=== PATIENT | male | born 1980 | race Caucasian/White ===

== ENCOUNTER 2025-04-15 16:52 | Observation (INO) | payer OTHER, SELFPAY ==
[2025-04-15] VITALS (16 sets, daily range): BP systolic 101–183; BP diastolic 68–119; BMI 35.7
[2025-04-15 10:09] LABS: % Eosinophils 2.6 % (0-6); % Immature Granulocytes 1.4 % (0-0.5); % Lymphocytes 27.7 % (20.5-51.1); % Monocytes 7.3 % (1.7-9.3); Absolute Basophils 0.1 10^3/uL (0-0.2); Absolute Eosinophils 0.2 10^3/uL (0-0.7); Absolute Immature Granulocytes 0.1 10^3/uL (0-0.05); Absolute Lymphocytes 1.6 10^3/uL (1.2-3.4); Absolute Monocytes 0.4 10^3/uL (0.1-0.6); Absolute Neutrophils 3.5 10^3/uL (1.4-6.5); Hematocrit 45.3 % (39.0-52.0); Hemoglobin 16.4 g/dL (13.0-18.0); Mean Corp Hgb Conc. 36.2 g/dL (33.0-37.0); Mean Corpuscular Hgb 30.1 pg (27.0-31.0); Mean Corpuscular Volume 83.3 fL (80.0-94.0); Nucleated Red Blood Cells % 0 % (-); Red Blood Cell Count 5.44 10^6/uL (4.70-6.10); Red Cell Dist. Width 12.8 % (11.5-14.5); White Blood Cell Count 5.8 10^3/uL (4.8-10.8)
[2025-04-15 10:15] LABS: ALT (SGPT) 28 U/L (0-50); AST (SGOT) 21 U/L (17-59); Albumin 4.7 g/dl (3.5-5.0); Alkaline Phosphatase 42 U/L (38-126); Blood Urea Nitrogen 15 mg/dl (9-20); Calcium 9.5 mg/dl (8.4-10.2); Carbon Dioxide 24 mmol/L (22-30); Chloride 109 mmol/L (98-107); Glucose 110 mg/dl (70-99); Potassium 4.6 mmol/L (3.5-5.1); Sodium 141 mmol/L (135-145); Total Protein 7.4 g/dl (6.3-8.2); eGFR > 60.00
[2025-04-15 10:27] LABS: Troponin I < 0.012 ng/ml
[2025-04-15 10:38] LABS: Platelet Count 154 10^3/uL (130-400)
--- NOTE | 2025-04-15 11:36 | ED.GENMED ---
History of Present Illness
<STACI Jimenez - Last Filed: 04/15/25 14:39>
General
Chief Complaint: Chest Pain
Source: patient
Exam Limitations: none
Time Seen by Provider: 04/15/25 11:09
Nursing documentation reviewed up to this point in time: agreed with
History of Present Illness
History of Present Illness:
Patient is a 45-year-old male who presents today for evaluation. Patient has intermittent chest pain since March the past several weeks. That time he was seen by urgent care March 29. He reports he has still had pain off and on which is what prompted
him to come to the ER. He does note that when he lays down to sleep at night his pain is improved he does notice that sitting up and even walking. He denies any associated shortness of breath radiation nausea vomiting diaphoresis. He is a
previous smoker but is no cardiac history. He has was told he has borderline mild high cholesterol and prediabetic but is not on medicine. He denies any injury however he does mention that he initially noticed the pain after golfing in March.
Past History
<STACI Jimenez - Last Filed: 04/15/25 14:39>
Past History
ED Past Medical History: None
Social History
Tobacco: Non-smoker
Alcohol: None
Family History
Family History: Negative Diabetes, Hypertension or CAD
Review of Systems
<STACI Jimenez - Last Filed: 04/15/25 14:39>
Review of Systems
Allergies reviewed?: Yes
All Other Systems: ROS reviewed and negative except as documented in HPI and ROS
Constitutional: Reports no symptoms; Denies fever, fatigue or chills
Respiratory: Reports no symptoms
Cardiac: Reports chest pain; Denies diaphoresis, palpitations or syncope
ABD/GI: Reports no symptoms
: Reports no symptoms
Musculoskeletal: Reports no symptoms
Skin: Reports no symptoms
Neurological: Reports no symptoms
Psychiatric: Reports no symptoms
Phy Exam
<STACI Jimenez - Last Filed: 04/15/25 14:39>
General Physical Exam
General Presentation: no apparent distress
General age: appears stated age
General Skin: warm and dry
General Habitus: normal
General Mental: alert
Cardiovascular Exam
Cardiovascular Exam: regular rate/rhythm, no murmur and normal peripheral pulses
Pulmonary Exam
Pulmonary Exam: lungs clear and no respiratory distress
Neurological Exam
Neurological Exam: alert and oriented x3
Musculoskeletal Exam
Musculoskeletal Exam: full ROM
Skin Exam
Skin Exam: normal color and warm/dry
Psychiatric Exam
Psychiatric Exam: normal mood/affect
Scores
<STACI Jimenez - Last Filed: 04/15/25 14:39>
Heart Score for Chest Pain Patients
STEMI patient?: Not applicable
Course
<STACI Jimenez - Last Filed: 04/15/25 14:39>
Orders/Labs/Results
Orders:
Orders
04/15/25 09:32
EKG [Electrocardiogram (*1)] Urgent
Reason for Study: Chest Pain
EKG- Treatment ONCE
04/15/25 09:47
Complete Blood Count/With Diff Urgent
Comprehensive Metabolic Panel Urgent
Troponin I Urgent
04/15/25 11:11
Chest [CR Chest - 2 Views ] Urgent
Comment:
Reason For Exam: cp
04/15/25 11:36
Ketorolac [Toradol] 15 mg IV NOW STA
04/15/25 11:45
DDimer [D-Dimer] Urgent
Troponin I Urgent
04/15/25 12:50
Electrocardiogram (*1) Stat
Reason for Study: Other
Other Reason for Exam: chest pain
EKG- Treatment ONCE
04/15/25 13:20
CT Chest Angio W/wo Iv Contras Urgent
Comment:
Reason For Exam: cp
Aspirin Chewable [Low Strength Aspirin] 81 mg PO NOW STA
Abnormal Lab Results
04/15/25
09:47
Abs Immat Gran (auto) 0.1 H 10^3/uL
(0-0.05)
Immature Gran % 1.4 H %
(0-0.5)
Chloride 109 H mmol/L
(98-107)
Glucose 110 H mg/dl
(70-99)
04/15/25 09:47
04/15/25 09:47
Vital Signs
Initial and Last Documented VS:
Initial Vital Signs
Temp Pulse Resp BP Pulse Ox
98.2 F 79 16 183/102 98
04/15/25 09:30 04/15/25 09:30 04/15/25 09:30 04/15/25 09:30 04/15/25 09:30
Last Documented Vital Signs
Temp Pulse Resp BP Pulse Ox
98.2 F 79 16 183/102 98
04/15/25 09:30 04/15/25 09:30 04/15/25 09:30 04/15/25 09:30 04/15/25 09:30
Farm Equipment Service Technician consulted with Physician
Farm Equipment Service Technician consulted with physician?: Yes (bridgette )
<Bryan Nazario MD - Last Filed: 04/15/25 13:26>
Orders/Labs/Results
Orders:
Orders
04/15/25 09:32
EKG [Electrocardiogram (*1)] Urgent
Reason for Study: Chest Pain
EKG- Treatment ONCE
04/15/25 09:47
Complete Blood Count/With Diff Urgent
Comprehensive Metabolic Panel Urgent
Troponin I Urgent
04/15/25 11:11
Chest [CR Chest - 2 Views ] Urgent
Comment:
Reason For Exam: cp
04/15/25 11:36
Ketorolac [Toradol] 15 mg IV NOW STA
04/15/25 11:45
DDimer [D-Dimer] Urgent
Troponin I Urgent
04/15/25 12:50
Electrocardiogram (*1) Stat
Reason for Study: Other
Other Reason for Exam: chest pain
EKG- Treatment ONCE
04/15/25 13:20
CT Chest Angio W/wo Iv Contras Urgent
Comment:
Reason For Exam: cp
Aspirin Chewable [Low Strength Aspirin] 81 mg PO NOW STA
Abnormal Lab Results
04/15/25
09:47
Abs Immat Gran (auto) 0.1 H 10^3/uL
(0-0.05)
Immature Gran % 1.4 H %
(0-0.5)
Chloride 109 H mmol/L
(98-107)
Glucose 110 H mg/dl
(70-99)
04/15/25 09:47
04/15/25 09:47
Vital Signs
Initial and Last Documented VS:
Initial Vital Signs
Temp Pulse Resp BP Pulse Ox
98.2 F 79 16 183/102 98
04/15/25 09:30 04/15/25 09:30 04/15/25 09:30 04/15/25 09:30 04/15/25 09:30
Last Documented Vital Signs
Temp Pulse Resp BP Pulse Ox
98.2 F 79 16 183/102 98
04/15/25 09:30 04/15/25 09:30 04/15/25 09:30 04/15/25 09:30 04/15/25 09:30
<STACI Jimenez - Last Filed: 04/15/25 14:39>
MDM/Problems Addressed
MDM/Problems Addressed:
Patient as documented has a intermittent chest tightness for the past 2 weeks not associate with injury that he is aware of. He has no cardiac history. He does have an appoint with cardiology but that is not until June that was recommended by
his family doctor. He presents awake alert no acute distress he was monitored here 2 negative cardiac troponins negative D-dimer. Patient was given Toradol however still has discomfort. Patient is concerned about persistent chest discomfort.
Case reviewed by ED physician CAT scan was ordered and negative throughout dissection. With persistent pain and no clear cause would recommend admission as discussed with ED physician. Patient was given 1 aspirin. pt is hypertensive her.
<STACI Jimenez - Last Filed: 04/15/25 14:39>
*Radiology
Radiology exam reviewed: radiology read reviewed
*Pulse Oximetry
Patient hypoxic: no
*EKG
Interpreted by ED Provider?: Yes
Heart Rate: 66
Rate: normal
Rhythm: sinus
Ischemia: no ischemia
*Critical Care Note
Total Time (30-74mins, 75-104mins- exclusive of procedures): Not Applicable
ED Attending Note
<STACI Jimenez - Last Filed: 04/15/25 14:39>
-
Portions of this chart may have been created with voice recognition software.� Occasional wrong word or��sound alike� substitutions may have occurred due to the inherent limitations of voice recognition software.
<Bryan Nazario MD - Last Filed: 04/15/25 13:26>
ED Attending Note
Patient seen and examined by attending physician: Yes
I performed the substantive portion of visit, reviewed & personally made and approve the management plan that is documented in note by myself or KELLI.: Yes
ED Attending Note:
45-year-old male discomfort left upper chest. Has been going on for weeks then resolved now recurred again 2 days ago. Very minimal at this time. Slightly worse with sitting up. No shortness of breath no back pain no nausea or vomiting.
Moderate risk factors including family history hypertension. Smokes marijuana.
On exam patient is nontoxic in no distress. Elevated BMI. Lungs clear and equal. Heart regular rate and rhythm no murmur. Abdomen elevated BMI soft and nontender. Perfusing well.
Diastolic blood pressures at 1 point were 119. This may be some chest discomfort related to blood pressure issues. Repeat blood pressures showed diastolic of about 100 bilaterally. Will get a dissection study although unlikely. With patient's
ongoing waxing and waning symptoms feel prudent to keep him overnight for monitoring and further care
Discharge Plan
Departure
Patient Disposition: Admit
Date of Disposition: 04/15/25
Time of Disposition: 14:38
Admit to: Telemetry
Admit to doctor: hospitalist
Presentation/result/management discussed w/ accepting MD/DO: Hospitalist
Patient with high blood pressure during this ER visit?: Yes
Condition: Fair
Covid-19: Not Applicable
Discharge Problem:
Chest pain
Prescriptions:
No Action
famotidine 20 MG tablet
20 mg PO BID Qty: 28 0RF
Rx Instructions:
Take 20 mg twice a day for 14 days
ascorbic acid (vitamin C) [Vitamin C] 500 MG tablet
1,000 mg PO BID Qty: 56 0RF
Rx Instructions:
Take 1,000 mg twice a day for 14 days
zinc sulfate 220 MG capsule
220 mg PO DAILY Qty: 14 0RF
Rx Instructions:
Take 220 mg daily for 14 days
cholecalciferol (vitamin D3) 1,000 UNITS tablet
2,000 units PO DAILY Qty: 28 0RF
Rx Instructions:
Take 2,000 units daily for 14 days
melatonin 5 MG tablet
5 mg PO HS Qty: 14 0RF
Rx Instructions:
Take 5 mg daily at bedtime for 14 days
albuterol sulfate 1 PUFF HFA aerosol inhaler
2 puff inhalation R Q4HPRN PRN (Reason: shortness of breath or wheeze) 30 Days Qty: 1 0RF
dexamethasone 6 MG tablet
6 mg PO DAILY 7 Days Qty: 7 0RF
aspirin 81 MG tablet,chewable
81 mg PO DAILY 30 Days Qty: 30 0RF
Referrals:
Garrett Warner MD [Family Provider, Family Practice]
Interventions
Interventions:
*Risk Screen - Suicide Last Done: 04/15/25 09:30
*General Assessment Last Done: 04/15/25 11:29
*Neglect/Abuse Screening Last Done: 04/15/25 09:30
*ED- Fall Risk Assessment Last Done: 04/15/25 11:29
ED- Cardiac Assessment Last Done: 04/15/25 11:28
Discharge Date and Time
Print Language: SERBIAN
[2025-04-15] MEDS: TORADOL 15 MG IV (12:13)
[2025-04-15 12:19] LABS: Troponin I < 0.012 ng/ml
[2025-04-15] MEDS: LOW STRENGTH ASPIRIN 81 MG PO (13:32)
--- NOTE | 2025-04-15 14:58 | HPS.HSE ---
Family Physician
-
Family Physician: Garrett Warner MD
Chief Complaint
-
Chest Pain
History of Present Illness
45 y/o male with past medical history of acute hypoxemic respiratory failure with COVID-bilateral viral pneumonia in July 2021, pre-Diabetes Mellitus and Hyperlipidemia, presented with left upper chest pain. Patient said he was golfing in March
2024, when he developed left upper chest pain that was steady, constant pain which lasted about 2 weeks, then spontaneously stopped for a few days. His chest pain then returned a few days ago and has persisted, and he decided to get it checked out
in the emergency room today. He denied any exacerbating factors, although when he lies down the pain is better. He denied any ischemic heart disease in his family members, he was a former smoke (quit ~20 years ago), and uses Mairjuana (but denied
any other recreational drug use. He denied any SOB, fever, chills, any recent prolonged immobilization, cancer, clotting disorders, or any recent surgeries.
Medical History
Past Medical History
Past Medical History: Reports Other (As per HPI above)
Past Surgical History: Reports None
Social History
Tobacco: Former Smoker
Alcohol: Occasional
Drug: Marijuana
Family History
Family History: Hypertension and Other (Hyperlipidemia)
Allergies / Home Medications
Allergies reflects when Allergies were last updated in [facility].
Home Medications with original date entered in [facility]
Allergy/Medication List:
Allergies
Allergy/AdvReac Type Severity Reaction Status Date / Time
No Known Allergies Allergy Verified 04/15/25 09:30
Home Medications
At the time of admission, patient stated that he does not take any regular medications at home.
Review of Systems
-
A 12 point ROS was completed and negative except as noted: Yes
Physical Exam
Vital Signs
Vital Signs
Temp Pulse Resp BP Pulse Ox
98.2 F 79 16 183/102 98
04/15/25 09:30 04/15/25 09:30 04/15/25 09:30 04/15/25 09:30 04/15/25 09:30
Physical Exam
General: No Apparent Distress
HEENT: NormoCephalic and Moist mucous membranes
Respiratory: Clear
Cardiac: S1/S2 and Regular Rhythm
GI: Soft, Non Tender and Normal Bowel Sounds
Musculoskeletal: No Cyanosis and No Edema
Skin: Warm and Dry
Neuro: Awake, Alert and AO x 3
Psych: Calm and Intact Judgment/Insight
Laboratory Results
-
04/15/25 09:47
04/15/25 09:47
Laboratory Results
Total Bilirubin 1.0 mg/dl (0.2-1.3) 04/15/25 09:47
AST 21 U/L (17-59) 04/15/25 09:47
ALT 28 U/L (0-50) 04/15/25 09:47
Alkaline Phosphatase 42 U/L (38-126) 04/15/25 09:47
Troponin I < 0.012 ng/ml 04/15/25 11:45
Impression/Plan
-
Assessment/Plan
Presentation with Left Upper Chest Pain -- persistent chest pains for ~1 month with a few days of chest pain free in between
Former Smoker
Marijuana Use
-I spoke (on 04/15/25) via [place] [facility] Text communication with on-call radiologist Dr. Carlin Sadler, II, DO, and he stated that the CT Angiography patient got earlier today was sufficient to rule out any possible pulmonary embolism. Patient also
does not have risk factors for pulmonary embolism and his D-Dimer is unremarkable.
-The CT Angiography ruled out any aortic dissection. It was also negative for pericardial effusion or coronary artery calcifications.
-EKG unremarkable
-Continue to trend troponins
-Patient had elevated blood pressures in the emergency room, but he attributed this to stress, later on his blood pressure improved dramatically
-Stress test tomorrow
-Echocardiogram tomorrow
-Continue to monitor for changes in chest pain
History of acute hypoxemic respiratory failure with COVID-bilateral viral pneumonia in July 2021
PRE-Diabetes Mellitus
-Patient reports this is being controlled through lifestyle, no medications
Hyperlipidemia
-Patient reports this is being controlled through lifestyle, no medications
Obesity
Faint diffuse groundglass opacities in both lungs favored to represent hypoventilatory changes on CTA Chest 04/15/25
Small region of more lucent sparing in the inferior right upper lobe measuring 4.1 cm on CTA Chest 04/15/25
Small hiatal hernia
Two lesions in the liver with arterial enhancement measuring 2.1 cm and 1.2 cm arterial enhancing lesions in the liver, indeterminate on the CT angiography but statistically most likely to represent flash filling hepatic hemangiomas as per the
radiologist
-Consider follow-up outpatient abdominal MRI without and with intravenous contrast
Chronic degenerative changes of the spine on CTA Chest
DVT Prophylaxis: Lovenox
Code Status: Full Code
--- NOTE | 2025-04-15 16:31 | CON.CAR ---
Consultation
Consultation Request
Date/Time Consultation Requested: 04/14/25 3:00pm
Date/Time Consultation Performed: 04/14/25 4:00pm
Requesting Provider: Dr Talley
Performing Provider: Dr Wright
Reason for Consultation: chest pain
Medical History
-
Chief Complaint: chest pain
History of Present Illness:
45-year-old male with past medical history of hyperlipidemia presents with chest pains intermittently for the past month. He states he has been having intermittent constant left chest and left upper outer chest area pressure and discomfort. The
pain worsened today and he came to the emergency room. It would last for hours at a time. Sometimes it is worse with positional changes other times it is not. He is able to sleep at night and does not seem worse with lying flat. He has had no
recent upper respiratory tract infections. He denies any shortness of breath, orthopnea, PND, or edema. He has no fevers or chills. The pain has been intermittently severe. He has tried occasional ibuprofen for this with some modest improvement.
He did go to urgent care several weeks ago for similar symptoms. He has had no previous cardiac workup. He does smoke/vape marijuana for anxiety
Past Medical History
Past Medical History: Hypercholesterolemia
Past Surgical History: None
Social History
Tobacco: Non-Smoker
Alcohol: Occasional
Drug: Marijuana
Personal:
Living: With Family
Employment: Employed
Family History
Family History: Other (CVA)
Allergies / Home Medications
Allergy/AdvReac Type Severity Reaction Status Date / Time
No Known Allergies Allergy Verified 04/15/25 09:30
�Medication �Instructions �Recorded �Confirmed �Type
ascorbic acid (vitamin C) 500 mg 1,000 mg (2 x 500 mg) PO BID #56 08/02/21 08/04/21 Rx
tablet (Vitamin C) tabs
cholecalciferol (vitamin D3) 25 2,000 units PO DAILY #28 tabs 08/02/21 08/04/21 Rx
mcg (1,000 unit) tablet
famotidine 20 mg tablet 20 mg PO BID #28 tabs 08/02/21 08/04/21 Rx
melatonin 5 mg tablet 5 mg PO HS #14 tabs 08/02/21 08/04/21 Rx
zinc sulfate 50 mg zinc (220 mg) 220 mg (4.4 x 50 mg zinc (220 mg)) 08/02/21 08/04/21 Rx
capsule PO DAILY #14 caps
albuterol sulfate 90 mcg/actuation 2 puff inhalation R Q4HPRN PRN 08/07/21 Rx
aerosol inhaler shortness of breath or wheeze 30
days ##1
aspirin 81 mg chewable tablet 81 mg PO DAILY 30 days #30 tabs 08/07/21 Rx
dexamethasone 6 mg tablet 6 mg PO DAILY 7 days #7 tabs 08/07/21 Rx
Review of Systems
-
History Source: Patient
Constitutional: Fatigue
EENT: No Symptoms
Respiratory: No Symptoms
Cardiac: Chest Pain
Abdomen/GI: No Symptoms
: No Symptoms
Musculoskeletal: No Symptoms
Skin: No Symptoms
Neurological: No Symptoms
Endocrine: No Symptoms
Hematologic/Lymphatic: No Symptoms
Physical Exam
Vital Signs
Temp Pulse Resp BP Pulse Ox
98.2 F 71 14 146/101 96
04/15/25 09:30 04/15/25 16:15 04/15/25 16:15 04/15/25 16:00 04/15/25 13:30
Lab Results
04/15/25 09:47
04/15/25 09:47
Troponin I < 0.012 ng/ml 04/15/25 11:45
Physical Exam
General: Well Developed, Well Nourished and No Apparent Distress
HEENT: Normocephalic and Anicteric
Respiratory: Clear and Non Labored Respirations
Cardiac: S1/S2, Regular Rhythm and Other (no murmur/rub/gallop)
GI: Soft, Non Tender and Non Distended
Musculoskeletal: No Cyanosis and No Edema
Skin: Warm and Dry
Neuro: AO x 3
Psych: Calm
Impression / Plan
-
Assess:
Chest pains
Hyperlipidemia
Borderline diabetes
Obesity
CT scan of the chest with no aortic dissection, aneurysm hematoma
EKG with normal sinus rhythm with normal EKG
Plan:
He presents with persistent chest pains for 1 month. Troponin is negative x 2. D-dimer negative.
CT scan of the chest was overall unremarkable. There was no pericardial effusion or coronary calcifications.
His symptoms have persisted for 1 month. He does have risk factors for coronary artery disease.
Will proceed with echocardiogram/stress echo to evaluate his symptoms.
EKG is overall unremarkable.
Check lipids and follow blood pressure.
I counseled him on stopping smoking/vaping marijuana
Data Reviewed
-
EKG: Tracing Personally Visualized and interpreted
Radiology: Report Reviewed by me
Medical Tests (Nuc Med, Echo etc): Report Reviewed by me
Labs: Labs Reviewed by me
[2025-04-15] MEDS: LOVENOX 40 MG SC (18:45)
--- NOTE | 2025-04-15 18:50 | PTCARENOTE ---
Pt up from ED. Walked to bed from [facility]anchez. VS taken. Put on tele. 18:25 trops drawn, lovenox given, food ordered. Pt made comfortable, call montgomery in reach, several family members present. Report given to oncoming shift.
[2025-04-15 20:26] LABS: Troponin I < 0.012 ng/ml
[2025-04-16 01:13] LABS: Troponin I < 0.012 ng/ml
[2025-04-16 03:29] VITALS: BP 138/89
[2025-04-16 07:00] VITALS: BP 147/90
[2025-04-16 07:28] LABS: % Basophils 0.5 % (0-2); % Eosinophils 2.9 % (0-6); % Immature Granulocytes 0.9 % (0-0.5); % Lymphocytes 29.8 % (20.5-51.1); % Monocytes 8.3 % (1.7-9.3); % Neutrophils 57.6 % (42.2-75.2); Absolute Eosinophils 0.2 10^3/uL (0-0.7); Absolute Immature Granulocytes 0.1 10^3/uL (0-0.05); Absolute Lymphocytes 1.9 10^3/uL (1.2-3.4); Absolute Monocytes 0.5 10^3/uL (0.1-0.6); Absolute Neutrophils 3.7 10^3/uL (1.4-6.5); Hematocrit 45.2 % (39.0-52.0); Hemoglobin 16.1 g/dL (13.0-18.0); Mean Corp Hgb Conc. 35.6 g/dL (33.0-37.0); Mean Corpuscular Hgb 29.7 pg (27.0-31.0); Mean Corpuscular Volume 83.2 fL (80.0-94.0); Mean Platelet Volume 11.6 fL (7.4-10.4); Nucleated Red Blood Cells % 0 % (-); Platelet Count 199 10^3/uL (130-400); Red Blood Cell Count 5.43 10^6/uL (4.70-6.10); Red Cell Dist. Width 12.8 % (11.5-14.5); White Blood Cell Count 6.5 10^3/uL (4.8-10.8)
[2025-04-16 07:43] LABS: Troponin I < 0.012 ng/ml
[2025-04-16 08:10] LABS: Blood Urea Nitrogen 14 mg/dl (9-20); Calcium 9.3 mg/dl (8.4-10.2); Carbon Dioxide 25 mmol/L (22-30); Chloride 110 mmol/L (98-107); Estimated Creatinine Clearance > 125 ml/min; Glucose 101 mg/dl (70-99); HDL Cholesterol 36 mg/dl; Potassium 4.2 mmol/L (3.5-5.1); Sodium 142 mmol/L (135-145); Total Cholesterol 213 mg/dl (50-199); eGFR > 60.00
[2025-04-16 08:11] LABS: Triglyceride 409 mg/dl (10-149)
[2025-04-16 08:43] LABS: LDL Cholesterol, Direct 121 mg/dl
--- NOTE | 2025-04-16 09:00 | CARDSERVDEF ---
Echocardiogram with Definity completed after protocol screening completed. Allergies verified.
Patent IV site: __RT AC___
IV site flushed with 0.9% NaCl pre and post administration.
Diluted bolus method utilized to enhance visualization of ventricular escobedo.
Total volume given: __4.0__ mL
Patient tolerated all procedures well without complications.
--- NOTE | 2025-04-16 10:32 | W.PN.HOSP.TC ---
Addendum entered and electronically signed by Pb Womack DO 04/16/25 10:45:
Spoke with cardiology, echo and stress test negative. Okay to discharge. Outpatient follow-up with PCP.
Original Note:
Today's Communication/Plan
-
Follow-up cardiac testing
Assessment / Plan
Assessment / Plan
Gen-AAOx3, NAD
HEENT-NC, AT, anicteric, clear oral mm
Neck-supple
CV-reg, no M, +S1/S2
Lungs-clear B/L
Abd-soft, NT, ND
Ext-no edema
Musculoskeletal-no cyanosis, clubbing
Skin-warm and dry
Neuro-grossly non-focal
Psych-calm, cooperative
Chest pain -atypical. Doubt ACS. Troponins negative. Stress test and echocardiogram completed, report pending.
Suspect musculoskeletal chest pain. Doubt GI related.
CTA on admission negative for thoracic aortic dissection, aneurysm, intramural hematoma. Possible hepatic hemangiomas noted in the liver.
Encouraged patient to stop vaping marijuana.
Obesity due to excess calories -weight loss encouraged.
Full code
Dispo -discharge today if cardiac workup negative. Outpatient follow-up with PCP.
Anticipated Discharge: Today
Subjective/Interval History
-
Date of Service: April 16, 2025
Patient seen and examined. States his chest pain improved during the stress test.
Objective Data
-
Labs:
Laboratory Results
04/16/25
06:54
WBC 6.5
Hgb 16.1
Hct 45.2
Plt Count 199 D
Sodium 142
Potassium 4.2
Chloride 110 H
Carbon Dioxide 25
BUN 14
Creatinine 0.9
Glucose 101 H
Calcium 9.3
Vital Signs:
Vital Signs
Temp Pulse Resp BP Pulse Ox
97.6 F 68 16 147/90 95
04/16/25 07:00 04/16/25 07:00 04/16/25 07:00 04/16/25 07:00 04/16/25 07:00
I&O
04/15/25 04/16/25 04/17/25
06:59 06:59 06:59
Intake Total 240 / 240
Balance 240 / 240
Review of Systems
-
History Source: Patient
All other systems: Reviewed and negative
--- NOTE | 2025-04-16 10:47 | W.DS.TRANS ---
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
-
Discharge Instructions:
Discharge Diagnosis/Procedures Chest pain
Diet Low Cholesterol,Low Fat
Activity No restrictions
Driving Restrictions As prior to admission
Bathing Restrictions None
Instructions:
Stand-Alone Forms:
Changes to Home Medications: No
Discharge Medications:
Home Medication Changes
Pending Results: No
--- NOTE | 2025-04-16 10:52 | CM ---
Patient for d/c today. Initial assessment completed. Patient is a 45 y/o male with past medical history of acute hypoxemic respiratory failure with COVID-bilateral viral pneumonia in July 2021, pre-Diabetes Mellitus and Hyperlipidemia,
presented with left upper chest pain.
Patient resides w/ spouse and their 5 children in a 3[facility], 1 step to enter. Patient is independent in all areas, no DME. No SNF/HC hx reported.
Address, point of contact and insurance verified
PCP: Garrett Warner
Pharmacy: [facility]
Patient admitted obs. OOBS form verbally reviewed, copy provided, copy on chart
Plan: Home today, no needs
[2025-04-16 11:24] VITALS: BP 138/93
--- NOTE | 2025-04-16 11:24 | W.PN.CARDCBS ---
Today's Communication / Plan
-
Essentially normal echo
Negative stress echocardiogram at high workload
Okay for discharge
Follow-up to primary care for noncardiac chest pain
Advised regarding importance of weight loss
Impression / Plan
-
Assess:
Chest pains
Hyperlipidemia
Borderline diabetes
Obesity
CT scan of the chest with no aortic dissection, aneurysm hematoma
EKG with normal sinus rhythm with normal EKG
Plan:
Stress echo and echo are normal. The CT scan of his chest with pulmonary embolism protocol was negative.
Cardiovascular risk remains low despite suboptimal lipids.
Importance of weight loss, exercise stressed.
He should stop smoking. Avoid marijuana.
Okay for discharge from cardiac standpoint with follow-up to his primary care.
Progress Note - [employer] Worker
Subjective
Date of Service: April 16, 2025:
45-year-old man admitted with chest discomfort, history of hypertension
PMH: Hyperlipidemia
Current meds: Subcu Lovenox
Outpatient meds: None prescription only, as needed albuterol
Rest of history as noted below
147/90, pulse 68, respiratory rate 16, afebrile, weight is 116.2 kg, pleasant, father at bedside, head neck exam unremarkable, lungs are clear, regular rate rhythm no obvious murmurs abdomen obese, extremities without clubbing cyanosis or edema
ECG normal
Normal CBC, normal BMP, glucose 101, triglycerides 409, total cholesterol 213, LDL is 121
CT scan of chest: Unremarkable, no coronary artery calcifications
Stress echocardiogram: Negative at 10+ minutes
Echo: Normal LV function, no significant valvular heart disease
Objective
Labs:
04/16/25 06:54
04/16/25 06:54
Labs
Hgb 16.1 g/dL (13.0-18.0) 04/16/25 06:54
Hct 45.2 % (39.0-52.0) 04/16/25 06:54
Plt Count 199 10^3/uL (130-400) D 04/16/25 06:54
Sodium 142 mmol/L (135-145) 04/16/25 06:54
Potassium 4.2 mmol/L (3.5-5.1) 04/16/25 06:54
BUN 14 mg/dl (9-20) 04/16/25 06:54
Creatinine 0.9 mg/dL (0.7-1.3) 04/16/25 06:54
Glucose 101 mg/dl (70-99) H 04/16/25 06:54
Troponins
04/15/25 04/15/25 04/15/25
09:47 11:45 19:41
Troponin I < 0.012 < 0.012 < 0.012
04/16/25 04/16/25
00:36 06:54
Troponin I < 0.012 < 0.012
Vital Signs and I&O:
Vital Signs
Temp Pulse Resp BP Pulse Ox
36.4 C 68 16 147/90 95
04/16/25 07:00 04/16/25 07:00 04/16/25 07:00 04/16/25 07:00 04/16/25 07:00
Vital Signs
Temp Pulse Resp BP Pulse Ox
36.4 C 68 16 147/90 95
04/16/25 07:00 04/16/25 07:00 04/16/25 07:00 04/16/25 07:00 04/16/25 07:00
Intake & Output
04/14/25 04/15/25 04/16/25 04/17/25
07:59 07:59 07:59 07:59
Intake Total 240 / 240
Balance 240 / 240
Physical Exam
Physical Exam
See above
== END 2025-04-16 11:50 | disposition home or self-care (01) ==
LOC: 4 WEST ACU 16:52
PROVIDERS: Emergency Medicine; Nurse Practitioner; ADMITTING PHYSICIAN Hospitalist; ATTENDING PHYSICIAN Hospitalist; CONSULT PHYSICIAN Internal Medicine Cardiovascular Disease; EMERGENCY PHYSICIAN Emergency Medicine; FAMILY PHYSICIAN Family Medicine
DX: R07.89 Other chest pain (principal); E66.09 Other obesity due to excess calories; E78.00 Pure hypercholesterolemia, unspecified; E11.9 Type 2 diabetes mellitus without complications; I10 Essential (primary) hypertension; K44.9 Diaphragmatic hernia without obstruction or gangrene; I49.8 Other specified cardiac arrhythmias; F12.90 Cannabis use, unspecified, uncomplicated; F17.290 Nicotine dependence, other tobacco product, uncomplicated; F41.9 Anxiety disorder, unspecified; Z82.49 Family history of ischemic heart disease and other diseases of the circulatory system; Z79.82 Long term (current) use of aspirin; Z79.51 Long term (current) use of inhaled steroids; Z82.3 Family history of stroke; Z83.49 Family history of other endocrine, nutritional and metabolic diseases; Z83.438 Family history of other disorder of lipoprotein metabolism and other lipidemia; Z68.35 Body mass index [BMI] 35.0-35.9, adult
CPT/HCPCS: 93017; 71046; 71275; 80048; 80053; 80061; 83721; 83735; 84484; 85025; 85379; 93005; 93320; 93325; 93350; 96374; 99285; G0378; Q9957; Q9967